=== PATIENT | male | born 1995 | race Hispanic/Latino ===

== ENCOUNTER 2018-05-07 22:04 | Emergency (ER) | payer OTHER | END 2018-05-07 23:28 | disposition home or self-care (01) | LOC: EDH 22:04 | DX: S02.5XXA Fracture of tooth (traumatic), initial encounter for closed fracture (principal); Z72.0 Tobacco use; X58.XXXA Exposure to other specified factors, initial encounter; Y93.89 Activity, other specified; Y92.89 Other specified places as the place of occurrence of the external cause; Y99.8 Other external cause status | CPT/HCPCS: 99281 ==

== ENCOUNTER 2023-04-13 02:30 | Emergency (ER) | payer OTHER ==
[~2023-04-13] VITALS: Ht 180.3 cm; Wt 63.0 kg
[2023-04-13 02:31] VITALS: BP 135/97
== END 2023-04-13 05:28 | disposition home or self-care (01) ==
LOC: EDH 02:30
DX: T50.905A Adverse effect of unspecified drugs, medicaments and biological substances, initial encounter (principal); Y92.89 Other specified places as the place of occurrence of the external cause
CPT/HCPCS: 99281